=== PATIENT | female | born 1985 ===

== ENCOUNTER 2022-03-30 12:26 | Outpatient (CLI) | payer OTHER | END 2022-03-30 14:15 | disposition home or self-care (01) | LOC: PRENATAL 12:26 | PROVIDERS: ATTEND Obstetrics & Gynecology Maternal & Fetal Medicine | DX: O35.0XX0 Maternal care for (suspected) central nervous system malformation in fetus, not applicable or unspecified (principal); O99.210 Obesity complicating pregnancy, unspecified trimester; Z3A.21 21 weeks gestation of pregnancy ==